=== PATIENT | male | born 1980 | race Caucasian/White ===

== ENCOUNTER 2023-05-23 10:00 | Outpatient (CLI) | payer BC, SELFPAY ==
--- NOTE | 2023-05-30 13:51 | WPDHOMESLEEP ---
Sleep Study - Home Unattended Date of Study: 05/23/23 Ordering Provider: Bre Rendon APRN Interpreting Provider: Fani Kent, DO Home Sleep Study Type: Apnea Link Air Height: 1.78 m Weight: 90.718 kg Body Mass Index: 28.7 Neck Circumference (inches): 17.5 [place]: 3 Reason for Sleep Study Loud snoring, witnessed apneas Sleep History The patient is a 43-year-old male with gout, hyperlipidemia, anxiety, pre-diabetes and history of tobacco use that had a sleep study ordered by his primary care for evaluation of sleep apnea. The patient denies awakening from sleep short of breath. He denies awakening at night with heartburn, belching or cough. He constantly snores loudly enough that others complain. He denies having trouble sleeping when he has a cold. He rarely wakes up gasping for air throughout the night. He denies having breathing problems at night observed by himself or others. He denies sweating excessively at night. He denies having heart palpitations or irregular heartbeats during the night. He denies falling asleep during the day and while driving. He denies sleep paralysis, cataplexy and hypnagogic / hypnopompic hallucinations. He denies having trouble at school or work due to sleepiness. He denies feeling afraid of going to sleep he rarely has nightmares rarely remembers his dreams. He rarely has thoughts racing through his mind. He denies feeling sad or depressed. He rarely has anxiety. He denies having muscular tension. He denies noticing parts of his body jerk. He denies kicking during the night. He denies having crawling and aching feelings in his legs and denies having leg pain during the night. He denies grinding his teeth during sleep and denies awakening with morning jaw pain. He denies being bothered by pain the day and denies being awakened by pain during the night. He rarely wakes up feeling stiff in the morning. He rarely wakes up with sore or achy muscles. He rarely wakes up with pain in the neck, spine or other joints. He goes to bed at 11:00 p.m. on weekdays and at 12:30 a.m. on the weekends. It takes him 30 minutes to fall asleep. He wakes up points throughout the night for unknown reasons but is able fall back asleep within 15 minutes. He wakes up at 7:00 a.m. on weekdays and at 8:00 a.m. on weekends. He typically gets 7 hours of sleep per night he will stay in bed for 5 minutes after waking up in the morning. He currently lives with his and 3 children. He denies consuming any caffeinated beverages within 2 hours of bedtime. He denies engaging in physical exercise before bedtime. He will watch television before falling asleep. He denies taking naps in the afternoon or the evening. He consumes 1 cup of coffee per day. He will have 12 alcoholic beverages per week. He quit smoking 10 years ago. He denies recreational drug use. 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
[2023-05-30 14:05] VITALS: BMI 28.7
== END 2023-05-24 13:18 | disposition home or self-care (01) ==
LOC: ANHCSM 10:03
PROVIDERS: PCP Family Medicine; Visit Provider Nurse Practitioner Family
DX: G47.10 Hypersomnia, unspecified (principal); G47.33 Obstructive sleep apnea (adult) (pediatric)
CPT/HCPCS: 95806

== ENCOUNTER 2023-06-21 09:15 | Outpatient (CLI) | payer BC, SELFPAY ==
--- NOTE | 2023-07-14 14:23 | WPDSLEEPSTUD ---
Sleep Study Date of Study: 06/21/23 Ordering Provider: Bre Rendon APRN Interpreting Physician: Lina Castillo MD Sleep Study Type: CPAP Titration Height: 1.73 m Weight: 90.718 kg Body Mass Index: 30.4 Neck Circumference (inches): 17.5 [place]: 3 Reason for Sleep Study * 05/23/2023- home sleep test with an AHI of 27.6, desaturation to 84%, and a central AHI of 3.1.? Sleep History Wei Jasso is a 43-year-old man who had a home sleep test 05/23/2023, returns for a CPAP titration. Medical conditions include hyperlipidemia, anxiety, pre-diabetes and history of tobacco use. He does not wake from sleep feeling short of breath.? He does not wake at night with heartburn, belching or coughing.? He constantly snores loudly enough that others complain.? He denies having trouble sleeping when he has a cold.? He rarely wakes up gasping for air at night. He does not sweat excessively at night.? He denies having heart palpitations or irregular heartbeats during the night.? He denies falling asleep during the day or while driving.? He denies feeling paralyzed on falling asleep or upon waking. He does not have muscle weakness with strong emotion. He does not have vivid dream-like scenes on waking or falling asleep. He denies daytime difficulties due to excessive sleepiness.? He denies feeling afraid of going to sleep, Rarely, he has nightmares. He rarely remembers his dreams.? He rarely has thoughts racing through his mind.? He denies feeling sad or depressed.? He rarely has anxiety.? He denies having muscular tension.? He denies noticing parts of his body jerk.? He denies kicking during the night.? He denies having crawling or aching feelings in his legs. He does not have leg pain during the night.? He denies grinding his teeth during sleep or waking with morning jaw pain.? He denies being bothered by pain the day, denies being awakened by pain during the night.? He rarely wakes up feeling stiff in the morning.? He rarely wakes up with sore or achy muscles.? He rarely wakes up with pain in the neck, spine or other joints.? Normal bedtime is 11:00 p.m. on weekdays and at 12:30 a.m. on the weekends.? It takes him 30 minutes to fall asleep.? He wakes up during the night for unknown reasons but is able to return to sleep within 15 minutes.? He wakes up at 7:00 a.m. on weekdays and at 8:00 a.m. on weekends.? He typically gets 7 hours of sleep per night. He currently lives with his and 3 children.? He denies taking naps in the afternoon or the evening.? Habits: Tobacco: Quit 10 years ago. Caffeine: 1 cup of coffee per day.? Alcohol: 12 alcoholic beverages per week.? Recreational substances: none. 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 Second hand tobacco smoke exposure: No Smoking end date: 10/09/07 Alcohol intake: current Drinks per week: 6 Alcohol use details: Beer or Whiskey Substance use: never Substance use type: does not use Lack of Transportation: No Lack of Food: Never True Current Housing: I Have Housing Concerned About Future Housing: No Difficulty Paying Gas/Electric Bills: No Difficulty Paying for Meds: No Currently Unemployed: No Education: Master's Degree or Higher Difficulty w/ Childcare or Family Care: No Spiritual care concerns: No Agree to blood products: Yes Medications Home Medications Medication Instructions Recorded Confirmed Type omega-3 fatty acids 1,000 mg 2,000 mg PO DAILY #360 caps 09/13/21 04/14/23 Rx capsule fenofibrate 160 mg tablet 16
[2023-07-14 15:15] VITALS: BMI 30.4
== END 2023-06-22 06:53 | disposition home or self-care (01) ==
LOC: ANHCSM 09:15
PROVIDERS: PCP Family Medicine; Visit Provider Nurse Practitioner Family
DX: G47.33 Obstructive sleep apnea (adult) (pediatric) (principal); R06.83 Snoring
CPT/HCPCS: 95811

== ENCOUNTER 2024-10-31 01:26 | Day surgery (SDC) | payer OTHER, SELFPAY ==
[2024-10-18 14:26] VITALS: BMI 26.9
--- NOTE | 2024-10-30 15:42 | P.PNAN_ITS ---
Anes - Initial Pre Proc Eval Procedure: Operation Date: 10/31/24 13:30 Proposed Procedures p Screening Colonoscopy - Jose Meza MD Date/Time: 10/30/24 15:42 Surgeon: Jose Meza MD Pre Op Diagnosis: neoplasm screening Patient Data Age: 44 Gender: M Height: 1.8 m Weight: 87.5 kg Allergies Allergy/AdvReac Type Severity Reaction Status Date / Time No Known Allergies Allergy Mild Verified 10/31/24 12:09 Home Medications ?Medication ?Instructions ?Recorded ?Confirmed ?Type omega-3 fatty acids 1,000 mg 2,000 mg (2 x 1,000 mg) PO DAILY 09/13/21 10/31/24 Rx capsule #360 caps allopurinol 300 mg tablet 300 mg PO DAILY #90 tabs 06/13/24 10/31/24 Rx fenofibrate 160 mg tablet 160 mg PO DAILY #90 tabs 08/06/24 10/31/24 Rx rosuvastatin 10 mg tablet 10 mg PO DAILY #90 tabs 08/06/24 10/31/24 Rx lorazepam 0.5 mg tablet 0.5 mg PO BID-TID PRN panic 09/12/24 10/18/24 Rx attack(s) #40 tabs Patient hx anesthesia problems: none Family hx anesthesia problems: none Results Review: All pre-operative results and documents have been reviewed as part of the pre- operative evaluation. 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 Second hand tobacco smoke exposure: No Smoking end date: 10/09/07 Alcohol intake: current Drinks per week: 6 Alcohol use details: Beer or Whiskey Substance use: never Substance use type: does not use Lack of Transportation: No Lack of Food: Never True Current Housing: I Have Housing Concerned About Future Housing: No Difficulty Paying Gas/Electric Bills: No Difficulty Paying for Meds: No Currently Unemployed: No Education: Master's Degree or Higher Difficulty w/ Childcare or Family Care: No Spiritual care concerns: No Agree to blood products: Yes Anes - Eval Final PreProcedure Day of Procedure 10/30/24 15:42 Patient weight: overweight Heart: regular rate and rhythm Lungs: clear to auscultation Airway: Mallampati scale class II Neurological: alert and oriented Last oral intake: >/= 8 hours ASA classification: III Emergent: no Anesthetic plan: proceed Anesthesia type and monitoring: general GIVS and standard monitoring Results Review: All pre-operative results and documents have been reviewed as part of the pre- operative evaluation. Informed Consent: The patient's anesthetic plan and its attendant risks and benefits were discussed with the patient/family/POA. Questions were solicited and answers provided to the satisfaction of the patient/family/POA.
[2024-10-31 12:12] VITALS: BP 146/97; PULSE 84; RESP 18; TEMP 36.5; O2SAT 100; BMI 27.2
[2024-10-31] MEDS: LACTATED RINGERS 1,000 ML 150 ML IV CONT (12:26)
--- NOTE | 2024-10-31 12:30 | PM.HPGS ---
History of Present Illness History of Present Illness Consent: Risks, benefits, and alternatives have been discussed and questions answered. Patient agrees to proceed with procedure. 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 Second hand tobacco smoke exposure: No Smoking end date: 10/09/07 Alcohol intake: current Drinks per week: 6 Alcohol use details: Beer or Whiskey Substance use: never Substance use type: does not use Lack of Transportation: No Lack of Food: Never True Current Housing: I Have Housing Concerned About Future Housing: No Difficulty Paying Gas/Electric Bills: No Difficulty Paying for Meds: No Currently Unemployed: No Education: Master's Degree or Higher Difficulty w/ Childcare or Family Care: No Spiritual care concerns: No Agree to blood products: Yes Meds Home Medications and Allergies Home Medications ?Medication ?Instructions ?Recorded ?Confirmed ?Type omega-3 fatty acids 1,000 mg 2,000 mg (2 x 1,000 mg) PO DAILY 09/13/21 10/31/24 Rx capsule #360 caps allopurinol 300 mg tablet 300 mg PO DAILY #90 tabs 06/13/24 10/31/24 Rx fenofibrate 160 mg tablet 160 mg PO DAILY #90 tabs 08/06/24 10/31/24 Rx rosuvastatin 10 mg tablet 10 mg PO DAILY #90 tabs 08/06/24 10/31/24 Rx lorazepam 0.5 mg tablet 0.5 mg PO BID-TID PRN panic 09/12/24 10/18/24 Rx attack(s) #40 tabs Allergies Allergy/AdvReac Type Severity Reaction Status Date / Time No Known Allergies Allergy Mild Verified 10/31/24 12:09 Vital Signs Vital Signs - 24 hr 10/31/24 12:12 Temperature 97.7 F Pulse Rate 84 Respiratory Rate 18 Blood Pressure 146/97 H Pulse Oximetry 100 Oxygen Delivery Room Air Exam Const: General: comfortable and no acute distress HENMT: Face/Nose/Sinus: Normal nares present Eyes: General: appearance normal, both eyes and all related structures Neck: Neck: no JVD Resp: Auscultation: clear to auscultation bilaterally Cardio: Rate: regular rate Rhythm: regular rhythm GI: Inspection: non-distended GI Palp: Yes Soft to palpation Skin: General skin exam: normal color Neuro: General: gait normal Speech: normal speech Extrem: General: normal to inspection Psych: Mental Status: mental status grossly normal Assessment and Plan Assessment and plan (1) Screening for colon cancer: Code(s): Z12.11 - Encounter for screening for malignant neoplasm of colon Status: Acute Assessment and Plan: colonoscopy
[2024-10-31 12:49] VITALS: BP 116/69; PULSE 81; RESP 19; O2SAT 99
[2024-10-31 12:59] VITALS: BP 118/72; PULSE 58; RESP 17; O2SAT 100
[2024-10-31 13:09] VITALS: BP 127/66; PULSE 60; RESP 17; O2SAT 100
--- NOTE | 2024-10-31 13:20 | SUR.PHASEII ---
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
== END 2024-10-31 13:25 | disposition home or self-care (01) ==
PROVIDERS: PCP Family Medicine; Referring Provider Nurse Practitioner; Visit Provider Internal Medicine Gastroenterology
PROC: 0DJD8ZZ Inspection of Lower Intestinal Tract, Via Natural or Artificial Opening Endoscopic (ICD-10-PCS; CPT 45378; principal; 2024-10-31 13:30)
DX: Z12.11 Encounter for screening for malignant neoplasm of colon (principal); D12.0 Benign neoplasm of cecum; K57.30 Diverticulosis of large intestine without perforation or abscess without bleeding; Z87.891 Personal history of nicotine dependence
CPT/HCPCS: 45380; 88305; J2003; J2704; J7120